=== PATIENT | male | born 1985 | race Caucasian/White ===

== ENCOUNTER 2017-06-30 10:16 | Emergency (ER) | payer OTHER ==
[2017-06-30 10:29] VITALS: BP 123/68; PULSE 65; TEMP 98.3; BMI 27.9
--- NOTE | 2017-06-30 11:39 | PDOC ---
History of Present Illness - General Chief Complaint: Injury Stated Complaint: INJURY Time Seen by Provider: 06/30/17 11:27 History Source: Patient Exam Limitations: No Limitations - History of Present Illness Initial Comments: 06/30/17 11:55 Pt. is a 31 y/o male with PMH of tonsillectomy, who presents to the ED c/o one day of neck pain, and sore throat. He also comes for evaluation of a small cut on the bridge of his nose. Pt. states that this morning he noticed some pain on the side of his neck and some pain with swallowing. Denies fevers, chills, cough. He states that his throat is also sore. In regards to the small cut on his face, pt. states he was working moving a crate of plates when one fell and hit him on the nose. He had a small cut that he was able to control the bleeding. Past History - Past Medical History Allergies/Adverse Reactions: Allergies Allergy/AdvReac Type Severity Reaction Status Date / Time naproxen sodium [From Aleve] Allergy Intermediate Rash Verified 06/30/17 10:25 Home Medications: Ambulatory Orders Amoxicillin - [Amoxicillin 500mg Capsule -] 500 mg PO BID #14 capsule 06/30/17 Other medical history: DENIES. - Psycho/Social/Smoking Cessation Hx Suicidal Ideation: No Smoking History: Never smoked *Physical Exam - Vital Signs Last Vital Signs Temp Pulse Resp BP Pulse Ox 98.3 F 65 19 123/68 99 06/30/17 10:26 06/30/17 10:26 06/30/17 10:26 06/30/17 10:26 06/30/17 10:26 *DC/Admit/Observation/Transfer Diagnosis at time of Disposition: Pharyngitis Qualifiers: Pharyngitis/tonsillitis etiology: unspecified etiology Qualified Code(s): J02.9 - Acute pharyngitis, unspecified Abrasion of nose Qualifiers: Encounter type: initial encounter Qualified Code(s): S00.31XA - Abrasion of nose, initial encounter - Discharge Dispostion Disposition: HOME Condition at time of disposition: Good Admit: No - Prescriptions Prescriptions: Amoxicillin - [Amoxicillin 500mg Capsule -] 500 mg PO BID #14 capsule - Referrals Referrals: Jordon Lozano [Primary Care Provider] - Savanah Beach MD [Staff Physician] - - Patient Instructions Printed Discharge Instructions: DI for Pharyngitis/Tonsillopharyngitis -- Adult Additional Instructions: You have a sore throat and a cut on your nose. Most likely, your sore throat is due to a virus; however, given that you came early that the symptoms are early, a prescription for amoxicillin was also sent to your pharmacy. If you do not feel like you are getting better within the next 48 hours, fill the prescription. You may take Tylenol as needed for pain. Follow up with your primary care doctor in one week. For the nose, use aquaphor (a pea size amount) twice a day to help prevent scarring for the next week. Once the scab has healed, you may use Mederma to help reduce any scarring. Follow up with dermatology. Return to the ED if you develop fevers, worsening pain, shortness of breath, chills, nausea, vomiting, or any other changes in your symptoms
[2017-06-30] MEDS ORDERED: ACETAMINOPHEN 325 MG TABLET (FP) PO ONE (11:52)
[2017-06-30] MEDS ORDERED: ACETAMINOPHEN 325 MG TABLET (FP) ONE (11:56)
== END 2017-06-30 12:15 | disposition home or self-care (01) ==
LOC: JERFT 10:16
DX: S00.31XA Abrasion of nose, initial encounter (principal); J02.9 Acute pharyngitis, unspecified; W22.8XXA Striking against or struck by other objects, initial encounter; Y93.89 Activity, other specified; Y92.89 Other specified places as the place of occurrence of the external cause; Y99.0 Civilian activity done for income or pay
CPT/HCPCS: 99281-25

== ENCOUNTER 2023-11-18 14:59 | Emergency (ER) | payer OTHER ==
[2023-11-18 15:49] VITALS: BP 101/61; PULSE 53; RESP 18; TEMP 97.7; BMI 30.1
[2023-11-18] MEDS ORDERED: LACTATED RINGERS SOLUTION 1000 ML INFUS.BAG IV ONE (17:00)
[2023-11-18 17:25] LABS: BASO % 1.2 % (0-2.0); EOS % 3.7 % (0-4.5); HEMATOCRIT 45.8 % (35.4-49); HEMOGLOBIN 15.4 GM/dL (11.7-16.9); LYMPH % 41.1 % (8-40); MCH 30.7 pg (25.7-33.7); MCHC 33.6 g/dl (32.0-35.9); MEAN CELL VOLUME 91.3 fl (80-96); MEAN PLT VOLUME 7.5 fl (7.5-11.1); MONO % 9.7 % (3.8-10.2); NEUT % 44.3 % (42.8-82.8); PLATELET COUNT 250 10^3/uL (134-434); RBC 5.02 M/mm3 (4.00-5.60); RDW 14.2 % (11.9-15.9); WHITE BLOOD COUNT 7.3 K/mm3 (4.0-10.0)
[2023-11-18 17:46] LABS: CALCIUM 8.7 mg/dL (8.5-10.1)
[2023-11-18 17:47] LABS: ALBUMIN 3.7 g/dl (3.4-5.0); BLOOD UREA NITROGEN 15.6 mg/dL (7-18); MAGNESIUM 2.1 mg/dL (1.8-2.4)
[2023-11-18 17:50] LABS: CREATININE 0.9 mg/dL (0.55-1.3); PHOSPHOROUS 3.6 mg/dL (2.5-4.9)
[2023-11-18 17:51] LABS: TOT PROT 7.5 g/dl (6.4-8.2)
[2023-11-18 17:52] LABS: BILIRUBIN,TOTAL 0.2 mg/dL (0.2-1)
== END 2023-11-18 18:30 | disposition home or self-care (01) ==
LOC: JER 14:59
DX: R19.7 Diarrhea, unspecified (principal); R14.0 Abdominal distension (gaseous); Z20.822 Contact with and (suspected) exposure to COVID-19
CPT/HCPCS: 0241U-QW; 36415; 80053; 83735; 84100; 85025; 87045; 87046; 87328; 87329; 99283-25